=== PATIENT | male | born 1960 | race Caucasian/White ===

== ENCOUNTER 2020-08-06 07:33 | Outpatient (RCR) | payer OTHER, SELFPAY ==
[2020-08-06 08:27] LABS: COVID-19 Test Negative (Negative)
[2020-08-13 08:26] LABS: COVID-19 Test Negative (Negative)
[2020-08-20 10:30] LABS: COVID-19 Test Negative (Negative)
[2020-08-27 08:27] LABS: COVID-19 Test Negative (Negative)
[2020-09-07 09:09] LABS: SARS-COV-2 PCR UMBRL Not Detected
[2020-09-15 09:02] LABS: SARS-COV-2 PCR UMBRL Not Detected
[2020-09-20 09:51] LABS: SARS-COV-2 PCR UMBRL Not Detected
[2020-09-27 10:03] LABS: SARS-COV-2 PCR UMBRL Not Detected
[2020-10-01 12:11] LABS: SARS-COV-2 PCR UMBRL NEGATIVE
[2020-10-08 15:29] LABS: SARS-COV-2 PCR UMBRL NEGATIVE
[2020-10-15 11:07] LABS: SARS-COV-2 PCR UMBRL NEGATIVE
== END 2020-08-06 07:34 | disposition home or self-care (01) ==
LOC: HO.EMPCOV 07:33
PROVIDERS: Visit Provider Internal Medicine
DX: Z20.828 Contact with and (suspected) exposure to other viral communicable diseases (principal)
CPT/HCPCS: 36415; 87635; C9803; U0003

== ENCOUNTER 2020-10-05 08:43 | Outpatient (REF) | payer OTHER, SELFPAY ==
[2020-10-05 09:36] LABS: Hematocrit 44.8 % (42-52); Hemoglobin 15.6 g/dl (14.0-18.0); Mean Corpuscular HGB Conc 34.8 g/dl (31.0-36.0); Mean Corpuscular Hemoglobin 30.3 pg (27.0-33.0); Mean Platelet Volume 11.9 fL (9.4-12.4); Platelet Count 206 X10*3/uL (160-400); Red Blood Count 5.15 X10*6/uL (4.60-5.80); Red Cell Distribution Width 11.5 % (11.0-16.0); White Blood Count 6.6 X10*3/uL (4.8-10.8)
[2020-10-05 09:44] LABS: Glucose Urine UA NEG (NEG); Leukocyte Esterase Urine NEG (NEG); Nitrite Urine NEG (NEG); PH 6.5 (5.0-8.0); Urine Blood NEG (NEG); Urine Ketones NEG (NEG); Urine Protein NEG (NEG-TRACE)
[2020-10-05 09:49] LABS: Appearance Urine CLEAR; Color Urine YELLOW
[2020-10-05 10:08] LABS: Alanine Aminotransferase 32 U/L (0-40); Albumin Level 4.1 g/dL (3.5-5.0); Alkaline Phosphatase 84 U/L (39-117); Anion Gap 12 (12-20); Aspartate Amino Transferase 22 U/L (5-37); Bilirubin Total 0.9 mg/dL (0.0-1.0); Blood Urea Nitrogen 14 mg/dL (9-16); Calcium 8.9 mg/dL (8.4-10.2); Carbon Dioxide 28 mmol/L (22-29); Chloride 105 mmol/L (96-108); Cholesterol 147 mg/dL; Estimated Glomerular Filt Rate > 60; Glucose Random 126 mg/dL (60-115); HDL Cholesterol 30 mg/dL; LDL Cholesterol Calculated 85 mg/dl; Potassium 4.4 mmol/l (3.3-5.1); Sodium 141 mmol/L (135-145); Total Protein 6.7 g/dL (6.5-8.0); Triglycerides 163 mg/dL
[2020-10-05 10:29] LABS: Prostate Specific Antigen 0.86 ng/mL (<0.05-4.0)
== END 2020-10-05 08:44 | disposition home or self-care (01) ==
LOC: HO.LAB 08:43
PROVIDERS: PCP Internal Medicine; Visit Provider Internal Medicine
DX: N52.9 Male erectile dysfunction, unspecified (principal); R10.31 Right lower quadrant pain; C67.9 Malignant neoplasm of bladder, unspecified; Z12.5 Encounter for screening for malignant neoplasm of prostate
CPT/HCPCS: 36415; 80053; 80061; 81003; 84153; 85027

== ENCOUNTER 2021-10-14 10:01 | Outpatient (REF) | payer OTHER, SELFPAY ==
[2021-10-14 10:37] LABS: MANUAL DIFF FLAG NO
[2021-10-14 11:31] LABS: Appearance Urine CLEAR; Color Urine YELLOW; Glucose Urine UA NEG (NEG); Leukocyte Esterase Urine TRACE (NEG); Nitrite Urine NEG (NEG); PH 6.5 (5.0-8.0); Urine Blood NEG (NEG); Urine Ketones NEG (NEG); Urine Protein NEG (NEG-TRACE)
[2021-10-14 11:44] LABS: Basophils Absolute Auto 0.1 X10*3/uL (0.0-0.2); Basophils Percent Auto 0.8 % (0-2); Eosinophils Absolute Auto 0.4 X10*3/uL (0.0-0.4); Hematocrit 48.6 % (42.0-52.0); Hemoglobin 16.9 g/dl (14.0-18.0); Imm Gran Abs Auto 0.02 X10*3/uL (0.00-0.03); Imm Gran Pct Auto 0.3 % (0.0-0.4); Lymphocytes Absolute Auto 2.9 X10*3/uL (1.2-4.9); Lymphocytes Percent Auto 39.4 % (20-40); Mean Corpuscular HGB Conc 34.8 g/dl (31.0-36.0); Mean Corpuscular Hemoglobin 30.3 pg (27.0-33.0); Mean Corpuscular Volume 87.3 fL (80.0-98.0); Mean Platelet Volume 12.2 fL (9.4-12.4); Monocytes Absolute Auto 0.6 X10*3/uL (0.1-1.2); Monocytes Percent Auto 8.3 % (2-11); Neutrophils Absolute Auto 3.4 x10*3/uL (2.0-8.3); Neutrophils Percent Auto 46.2 % (45-73); Platelet Count 221 X10*3/uL (160-400); Red Blood Count 5.57 X10*6/uL (4.60-5.80); Red Cell Distribution Width 11.6 % (11.0-16.0); White Blood Count 7.4 X10*3/uL (4.8-10.8)
[2021-10-14 12:04] LABS: Alanine Aminotransferase 43 U/L (0-40); Albumin Level 4.4 g/dL (3.5-5.0); Alkaline Phosphatase 91 U/L (39-117); Anion Gap 14 (12-20); Aspartate Amino Transferase 27 U/L (5-37); Blood Urea Nitrogen 15 mg/dL (9-16); Calcium 9.7 mg/dL (8.4-10.2); Carbon Dioxide 27 mmol/L (22-29); Chloride 104 mmol/L (96-108); Cholesterol 171 mg/dL; Estimated Glomerular Filt Rate > 60; Glucose Random 133 mg/dL (60-115); HDL Cholesterol 35 mg/dL; LDL Cholesterol Calculated 96 mg/dl; Potassium 4.6 mmol/L (3.3-5.1); Sodium 140 mmol/L (135-145); Total Protein 7.4 g/dL (6.5-8.0); Triglycerides 202 mg/dL
[2021-10-14 12:04] LABS: Bacteria Urine TRACE /LPF; RBC Urine 0-2 /HPF (0); Squamous Epithelial Cell Urine TRACE /LPF
[2021-10-14 12:11] LABS: Prostate Specific Antigen 0.81 ng/mL (<0.05-4.0)
== END 2021-10-14 10:02 | disposition home or self-care (01) ==
LOC: HO.LAB 10:01
PROVIDERS: PCP Internal Medicine; Visit Provider Internal Medicine
DX: Z12.5 Encounter for screening for malignant neoplasm of prostate (principal); R10.31 Right lower quadrant pain; N52.9 Male erectile dysfunction, unspecified; C67.9 Malignant neoplasm of bladder, unspecified
CPT/HCPCS: 36415; 80053; 80061; 81001; 84153; 85025

== ENCOUNTER → 2021-12-22 14:30 | Outpatient (BNVA) | payer OTHER, SELFPAY | PROVIDERS: PCP Internal Medicine; Visit Provider Physician Assistant | DX: Z13.89 Encounter for screening for other disorder (principal) ==

== ENCOUNTER 2022-03-24 11:22 | Day surgery (SDC) | payer OTHER, SELFPAY ==
[2022-03-20 13:48] VITALS: BMI 30.2
--- NOTE | 2022-03-23 10:09 | P.CONAN_ITS ---
Documented by User: Tomeka Chaudhry NP 03/23/22 10:11 HPI - Anesthesia Eval Consult details Narrative: 89yo M for Colonoscopy [facility] Active Problems Active Problems: All Active Problems (Updated 03/20/22 @ 13:48 by Dariana Bernard, JESSICA) Encounter for screening colonoscopy (Acute) Bladder cancer (Acute) Elevated BP without diagnosis of hypertension (Acute) Past Medical History Medical History Bladder cancer GERD (gastroesophageal reflux disease) Gout Family History Family History Father Lung cancer Surgical History Surgical History H/O colonoscopy Social History Social History Household Members Other:: single, no kids Alcohol intake: current Patient Tobacco Use Status: Never used Tobacco Are you DNR?: No Advance Directives: No Advance Directives Information Provided: Yes Current occupation: [employer] Meds Allergies Allergy/AdvReac Type Severity Reaction Status Date / Time No Known Allergies Allergy Unverified 06/10/20 15:08 [No Known Allergies*] Home Medications Medication Instructions Recorded Confirmed Last Taken Type sildenafil 100 mg tablet 1 tab PO DAILY PRN Erectile 03/20/22 03/20/22 Unknown History Dysfunction Exam Exam Date and Time: March 23, 2022 1009 Height,Weight and Vital Signs: Height 5 ft 10 in Weight 95.708 kg Pertinent Lab Results Pertinent Lab Results: Laboratory Tests 10/14/21 10/14/21 10:35 10:35 WBC 7.4 Hgb 16.9 Hct 48.6 Plt Count 221 Sodium 140 Potassium 4.6 Chloride 104 Carbon Dioxide 27 BUN 15 Creatinine 1.05 Assessment and Plan Assessment Anesthesia Assessment: Chart Reviewed Documented by User: Sandy Cortes MD 03/24/22 13:29 [facility] Past Medical History Medical History Bladder cancer GERD (gastroesophageal reflux disease) Gout Family History Family History Father Lung cancer Surgical History Surgical History H/O colonoscopy History of Problems with Anesthesia: No Social History Social History Household Members Other:: single, no kids Alcohol intake: current Patient Tobacco Use Status: Never used Tobacco Are you DNR?: No Advance Directives: No Advance Directives Information Provided: Yes Current occupation: [employer] Meds Allergies Allergy/AdvReac Type Severity Reaction Status Date / Time No Known Allergies Allergy Unverified 06/10/20 15:08 [No Known Allergies*] Home Medications Medication Instructions Recorded Confirmed Last Taken Type sildenafil 100 mg tablet 1 tab PO DAILY PRN Erectile 03/20/22 03/20/22 Unknown History Dysfunction Exam Airway Mallampati Class: II TM Dist: >3cm Neck ROM: Full Loose/Missing/Broken Teeth: No Heart: RRR Lungs: CTA Assessment and Plan Final Anesthetic Review History of Problems with Anesthesia: No NPO: Yes ASA Class: II Final Preanesthetic Review: Meds/Allgs Chart Reviewed, Consent Obtained/Reviewed and Anes Risks/Benef Reviewed Patient Risk: Low Procedure Risk: Low Anesthetic Plan Anesthetic Plan: MAC: Disposition: Standard PACU
[2022-03-24 11:49] VITALS: BP 160/95; PULSE 77; RESP 19; TEMP 36.1; O2SAT 97
[2022-03-24] MEDS: Lactated Ringers 1,000 ML 100 ML IVCONT (12:20)
--- NOTE | 2022-03-24 12:46 | MHC.SHP ---
Pre-Procedural Eval Section A Date of Service: 03/24/22 The patient is an INPATIENT: No The History & Physical has been completed within 30 days and I have reviewed it.: No Section B Chief Complaint: screening Details of Present Illness: Colon cancer screening Relevant Family History (Specify if Yes): No Relevant Social History: None Present Medications: see Short Stay Collaborative assessment Medical History: Significant History (Bladder cancer) History of Previous Operations: Relevant previous surgery/procedure and date(s) (History of colonoscopy) Allergies: Allergies Allergy/AdvReac Type Severity Reaction Status Date / Time No Known Allergies Allergy Unverified 06/10/20 15:08 [No Known Allergies*] Review of Systems Sugical H&P ROS: Negative: Constitution, Cardiovascular, Respiratory and Gastrointestinal Exam Surgical H&P Exam: Normal: Heart, Normal: Lungs and Normal: Extremities Plan Diagnosis/Plan: Unchanged I have reviewed the history and physical and performed a pertinent physical examination on my patient. No changes have occurred unless specified.
--- NOTE | 2022-03-24 12:59 | PM.OP ---
Brief Operative Note Date of Service: 03/24/22 Pre-op diagnosis: Colon cancer screening Post-op diagnosis: other (Colon polyps, diverticulosis, hemorrhoids) Procedure: COLONOSCOPY TILL ILEOCECAL VALVE WITH BIOPSIES AND SNARE POLYPECTOMY Consent: Indications for the procedure and potential complications of bleeding, perforation, reaction to medications and missed diagnosis were discussed with the patient and informed consent was obtained. Instrument: Olympus PCF H 190 L variable stiffness pediatric colonoscope Monitoring: Vital signs and clinical assessment, intermittent blood pressure monitoring, continuous EKG monitoring, Pulse oximetry and Carbon Dioxide monitoring were done throughout the procedure. Colon withdrawl time was 20 minutes. Procedure: The patient was placed in the left lateral decubitis position and pre-procedure medications were administered. After a digital rectal examination of the ano-rectum, the video colonoscope was inserted into the rectum and advanced through the colon to the ICV. It was not possible to intubate the cecum due to recurrent looping of the scope. Cecum was partially visualized across the ICV. The colonoscope was slowly withdrawn in a retrograde panoramic fashion and the colon mucosa was carefully examined including a retroflexed view of the rectum. Findings and interventions are described below. Procedure Difficulty: Pt was placed in the supine position and LLQ pressure applied to intubate the cecum] Findings: Terminal Ileum: Not evaluated Cecum: Partially evaluated. A 5 mm sessile polyp removed with a cold bx. Ascending Colon: A 10 mm sessile polyp removed with a cold snare. Transverse Colon: Normal Descending Colon: Moderate diverticulosis Sigmoid Colon: Moderate diverticulosis Rectum: Normal Ano-rectum: Moderate internal hemorrhoids Colon preparation: Excellent Impression and Post Procedure Diagnosis: Colonoscopy Findings: Two small to medium sized polyps removed Moderate diverticulosis seen in the left colon Moderate hemorrhoids on retroflexed exam. Plan: Await pathology results Patient has an appointment on 04/06/22 in the GI Clinic with JAHAIRA Mora. Repeat Colonoscopy interval based on path results - in 3 years if polyps are adenomatous and since colon was partially visualized (needs adult colonoscope for future procedures). Colon polyps and diverticulosis handouts were given in the discharge area Surgeon: Fox Estrada MD Anesthesia: MAC (Dr Cortes) Was an Label Printer used for this Procedure?: Yes Label Printer: Faith Malcolm Estimated blood loss (mL): 0 Pathology: other (A: cecal polyp B: Polyps ascending colon) Condition: stable Disposition: PACU
[2022-03-24 13:40] VITALS: BP 133/74; PULSE 69; RESP 18; TEMP 36.7; O2SAT 97
[2022-03-24 13:55] VITALS: BP 119/71; PULSE 62; RESP 18; TEMP 36.6; O2SAT 98
--- NOTE | 2022-03-27 15:06 | P.OP_ITS ---
Operative Note Operative Note Date of Service: 03/24/22 Narrative: Pre-op diagnosis: Colon cancer screening Post-op diagnosis:?other (Colon polyps, diverticulosis, hemorrhoids) Procedure: COLONOSCOPY TILL ILEOCECAL VALVE WITH BIOPSIES AND SNARE POLYPECTOMY Consent: Indications for the procedure and potential complications of bleeding, perforation, reaction to medications and missed diagnosis were discussed with the patient and informed consent was obtained. Instrument: Olympus PCF H 190 L variable stiffness pediatric colonoscope Monitoring: Vital signs and clinical assessment, intermittent blood pressure monitoring, continuous EKG monitoring, Pulse oximetry and Carbon Dioxide monitoring were done throughout the procedure. Colon withdrawl time was 20 minutes. Procedure: The patient was placed in the left lateral decubitis position and pre-procedure medications were administered. After a digital rectal examination of the ano-rectum, the video colonoscope was inserted into the rectum and advanced through the colon to the ICV. It was not possible to intubate the cecum due to recurrent looping of the scope.? Cecum was partially visualized across the ICV.? The colonoscope was slowly withdrawn in a retrograde panoramic fashion and the colon mucosa was carefully examined including a retroflexed view of the rectum. Findings and interventions are described below. Procedure Difficulty: Pt was placed in the supine position and LLQ pressure applied to intubate the cecum Findings: Terminal Ileum: Not evaluated Cecum:? Partially evaluated.? A 5 mm sessile polyp removed with a cold bx. Ascending Colon:? A 10 mm sessile polyp removed with a cold snare. Transverse Colon:? Normal Descending Colon:? Moderate diverticulosis Sigmoid Colon:? Moderate diverticulosis Rectum:? Normal Ano-rectum:? Moderate internal hemorrhoids Colon preparation: Excellent ? Impression and Post Procedure Diagnosis: Colonoscopy Findings: Two small to medium sized polyps removed Moderate diverticulosis seen in the left colon Moderate hemorrhoids on retroflexed exam. Plan: Await pathology results Patient has an appointment on 04/06/22 in the GI Clinic with JAHAIRA Mora. Repeat Colonoscopy interval based on path results - in 3 years if polyps are adenomatous and since colon was partially visualized (needs adult colonoscope for future procedures). Colon polyps and diverticulosis handouts were given in the discharge area Surgeon: Fox Estrada MD Anesthesia:?MAC (Dr Cortes) Was an Staff Field Engineer used for this Procedure?:?Yes Staff Field Engineer:?Faith Malcolm Estimated blood loss (mL):?0 Pathology:?other (A: cecal polyp? B: Polyps ascending colon) Condition:?stable Disposition:?PACU
== END 2022-03-24 14:50 | disposition home or self-care (01) ==
PROVIDERS: PCP Internal Medicine; Visit Provider Internal Medicine Gastroenterology
PROC: 0DJD8ZZ Inspection of Lower Intestinal Tract, Via Natural or Artificial Opening Endoscopic (ICD-10-PCS; CPT 45378; principal; 2022-03-24 12:50)
DX: Z12.11 Encounter for screening for malignant neoplasm of colon (principal); D12.0 Benign neoplasm of cecum; D12.2 Benign neoplasm of ascending colon; K57.30 Diverticulosis of large intestine without perforation or abscess without bleeding; K64.8 Other hemorrhoids; R03.0 Elevated blood-pressure reading, without diagnosis of hypertension; K21.9 Gastro-esophageal reflux disease without esophagitis; M10.9 Gout, unspecified; Z85.51 Personal history of malignant neoplasm of bladder; Z79.899 Other long term (current) drug therapy
CPT/HCPCS: 45385; 45380; 88305

== ENCOUNTER 2022-05-09 11:47 | Outpatient (REF) | payer OTHER, SELFPAY ==
[2022-05-09 17:04] LABS: Urine Cytology See Pathology rpt
== END 2022-05-09 11:48 | disposition home or self-care (01) ==
LOC: HO.LAB 11:47
PROVIDERS: Visit Provider Urology
DX: C67.9 Malignant neoplasm of bladder, unspecified (principal)
CPT/HCPCS: 88112

== ENCOUNTER → 2022-06-27 14:00 | Outpatient (BNVA) | payer OTHER, SELFPAY | PROVIDERS: PCP Internal Medicine; Visit Provider Urology | DX: C67.9 Malignant neoplasm of bladder, unspecified (principal) | CPT/HCPCS: 52000 ==

== ENCOUNTER 2022-10-25 09:22 | Outpatient (REF) | payer OTHER, SELFPAY ==
[2022-10-25 09:33] LABS: MANUAL DIFF FLAG NO
[2022-10-25 10:02] LABS: Basophils Absolute Auto 0.1 X10*3/uL (0.0-0.2); Basophils Percent Auto 0.7 % (0-2); Eosinophils Absolute Auto 0.3 X10*3/uL (0.0-0.4); Eosinophils Percent Auto 3.8 % (0-4); Hematocrit 45.8 % (42.0-52.0); Imm Gran Abs Auto 0.02 X10*3/uL (0.00-0.03); Imm Gran Pct Auto 0.3 % (0.0-0.4); Lymphocytes Absolute Auto 3.2 X10*3/uL (1.2-4.9); Mean Corpuscular HGB Conc 34.9 g/dl (31.0-36.0); Mean Corpuscular Hemoglobin 29.7 pg (27.0-33.0); Mean Platelet Volume 11.2 fL (9.4-12.4); Monocytes Absolute Auto 0.6 X10*3/uL (0.1-1.2); Monocytes Percent Auto 7.8 % (2-11); Neutrophils Absolute Auto 3.1 x10*3/uL (2.0-8.3); Neutrophils Percent Auto 43.4 % (45-73); Platelet Count 235 X10*3/uL (160-400); Red Blood Count 5.39 X10*6/uL (4.60-5.80); Red Cell Distribution Width 11.9 % (11.0-16.0); White Blood Count 7.2 X10*3/uL (4.8-10.8)
[2022-10-25 10:07] LABS: Appearance Urine Clear; Color Urine Yellow; Glucose Urine UA Negative (Negative); Leukocyte Esterase Urine Negative (Negative); Nitrite Urine Negative (Negative); PH 5.5 (5.0-9.0); Urine Blood Negative (Negative); Urine Ketones Negative (Negative); Urine Protein Negative (Neg-Trace)
[2022-10-25 10:41] LABS: Alanine Aminotransferase 31 U/L (0-40); Albumin Level 4.2 g/dL (3.5-5.0); Alkaline Phosphatase 104 U/L (39-117); Anion Gap 10 (12-20); Aspartate Amino Transferase 27 U/L (5-37); Bilirubin Total 0.8 mg/dL (0.0-1.0); Blood Urea Nitrogen 17 mg/dL (9-16); Calcium 9.2 mg/dL (8.4-10.2); Carbon Dioxide 28 mmol/L (22-29); Chloride 107 mmol/L (96-108); Cholesterol 168 mg/dL; Estimated Glomerular Filt Rate > 60; Glucose Random 140 mg/dL (60-115); HDL Cholesterol 30 mg/dL; LDL Cholesterol Calculated 88 mg/dl; Sodium 141 mmol/L (135-145); Total Protein 6.9 g/dL (6.5-8.0); Triglycerides 253 mg/dL
[2022-10-25 10:55] LABS: Prostate Specific Antigen 1.72 ng/mL (<0.05-4.0)
== END 2022-10-25 09:23 | disposition home or self-care (01) ==
LOC: HO.LAB 09:22
PROVIDERS: PCP Internal Medicine; Visit Provider Internal Medicine
DX: Z00.00 Encounter for general adult medical examination without abnormal findings (principal); Z12.5 Encounter for screening for malignant neoplasm of prostate
CPT/HCPCS: 36415; 80053; 80061; 81003; 84153; 85025

== ENCOUNTER 2023-11-07 09:04 | Outpatient (REF) | payer OTHER, SELFPAY ==
[2023-11-07 10:30] LABS: Alanine Aminotransferase 29 U/L (0-40); Albumin Level 4.2 g/dL (3.5-5.0); Alkaline Phosphatase 95 U/L (39-117); Anion Gap 12 (12-20); Aspartate Amino Transferase 20 U/L (5-37); Bilirubin Total 0.9 mg/dL (0.0-1.0); Blood Urea Nitrogen 16 mg/dL (9-16); Calcium 9.8 mg/dL (8.4-10.2); Carbon Dioxide 27 mmol/L (22-29); Chloride 107 mmol/L (96-108); Cholesterol 175 mg/dL (<200); Estimated Glomerular Filt Rate > 60; Glucose Random 162 mg/dL (60-115); HDL Cholesterol 33 mg/dL (>40); LDL Cholesterol Calculated 99 mg/dL (<100); Potassium 4.3 mmol/L (3.3-5.1); Sodium 142 mmol/L (135-145); Total Protein 7.4 g/dL (6.5-8.0); Triglycerides 219 mg/dL (<150)
[2023-11-07 10:44] LABS: Prostate Specific Antigen 1.21 ng/mL (<0.05-4.0)
== END 2023-11-07 09:05 | disposition home or self-care (01) ==
LOC: HO.LAB 09:04
PROVIDERS: PCP Internal Medicine; Visit Provider Nurse Practitioner Adult Health
DX: Z00.00 Encounter for general adult medical examination without abnormal findings (principal); Z12.5 Encounter for screening for malignant neoplasm of prostate; E78.00 Pure hypercholesterolemia, unspecified; N40.0 Benign prostatic hyperplasia without lower urinary tract symptoms
CPT/HCPCS: 36415; 80053; 80061; 84153

== ENCOUNTER 2025-03-31 09:59 | Outpatient (REF) | payer OTHER, SELFPAY ==
[2025-03-31 11:27] LABS: Alanine Aminotransferase 25 U/L (0-40); Albumin Level 4.6 g/dL (3.5-5.0); Alkaline Phosphatase 102 U/L (39-117); Anion Gap 11 (12-20); Aspartate Amino Transferase 26 U/L (5-37); Blood Urea Nitrogen 17 mg/dL (9-16); Calcium 9.2 mg/dL (8.4-10.2); Carbon Dioxide 28 mmol/L (22-29); Chloride 107 mmol/L (96-108); Cholesterol 160 mg/dL (<200); Estimated Glomerular Filt Rate > 60; HDL Cholesterol 34 mg/dL (>40); Potassium 4.9 mmol/L (3.3-5.1); Sodium 141 mmol/L (135-145); Total Protein 7.3 g/dL (6.5-8.0); Triglycerides 159 mg/dL (<150)
[2025-03-31 11:39] LABS: Hemoglobin A1C 185.3291 umol/L; Total Hemoglobin (HGBA1C) 4181.6181 umol/L
[2025-03-31 11:50] LABS: Microalbum/Creatinine Ratio Ur 7.2 ug/mg cr (<30)
[2025-03-31 11:50] LABS: Free T4 (Free Thyroxine) 0.88 ng/dL (0.71-1.85); Thyroid Stimulating Hormone 2.02 uIU/mL (0.32-4.0)
== END 2025-03-31 10:00 | disposition home or self-care (01) ==
LOC: HO.LAB 09:59
PROVIDERS: PCP Internal Medicine; Visit Provider Nurse Practitioner Adult Health
DX: E11.9 Type 2 diabetes mellitus without complications (principal); N50.811 Right testicular pain
CPT/HCPCS: 36415; 80053; 80061; 82043; 82570; 83036; 84153; 84439; 84443

== ENCOUNTER 2025-07-10 13:48 | Outpatient (AMB) | payer OTHER, SELFPAY ==
--- NOTE | 2025-07-10 14:06 | A.OFFVIS_ITS ---
Intake Visit Reasons: 3y Cysto Intake Note: Patient is present for cystoscopy Current Medication: sildenafil Blood Thinners: none Osd Clerk Required: No Accompanied by: Self / Same As Patient Allergies No Known Allergies (No Known Allergies*) Allergy (Verified 08/07/25 09:34) HPI Comments Details: Madhav is a very pleasant male. He is a patient of Dr. Andrade. 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 Dc Cystoscopy - 07/15 NAD - left sidewall scarring Cytology negative high-grade Plan on check cystoscopy in 3 years PFSH Medical History Prediabetes Back pain Sports hernia HTN (hypertension) Gout GERD (gastroesophageal reflux disease) Bladder cancer Surgical History History of bladder surgery H/O colonoscopy Family History Father Lung cancer Social History Household Members Other:: single, no kids Alcohol intake: current Patient Tobacco Use Status: Never used Tobacco Use of substances other than those prescribed or required for medical reasons: Yes Substance Use Frequency: Occasionally Are you DNR?: No Advance Directives: No Advance Directives Information Provided: Yes Current occupation: [employer] Review of Systems Const Denies chills and Denies fever(s) Card Reports no additional complaints and Denies syncope Resp Denies cough GI Denies abdominal pain and Denies heartburn Reports as per HPI and Denies change in libido Neuro Denies syncope Psych Denies change in libido Endo Denies change in libido Physical Exam Const General: cooperative, healthy appearing, comfortable and no acute distress Orientation/consciousness: patient oriented x3 HEENT Face and sinus: Yes normal facial exam Mouth: moist mucous membranes Neck Neck: Yes normal visual inspection, Yes full ROM and Yes trachea midline Chest Chest palpation & inspection: normal inspection of the chest Resp Effort & Inspection: normal respiratory effort, able to speak in complete sentences and no respiratory distress GI Inspection: Yes normal to inspection Back/Spine/Pelvis Cervical Spine: normal cervical lordosis Thoracic/Lumbar Spine: thoracic and lumbar spine normal to inspection Skin General skin exam: no rashes or lesions noted Neuro General: patient oriented x3, gait normal, tone normal and moves all extremities Extrem General: Yes normal to inspection and Yes capillary refill normal Office Procedures Cystoscopy Consent Discussed risk and benefit or proposed procedure with the patient. Information consent for procedure given to the patient. Discussed technical aspects, risks, benefits and alternatives in full. Addressed all of the patient's questions and concerns regarding the procedure. The patient demonstrated knowledge and understanding. They wish to proceed with this procedure. Preparation The patient was prepped in the usual manner. A mixer machine feeder was present and in the room. Genitalia was prepped with betadine solution in a sterile manner. Lidocaine Jelly 2% was placed into the urethra and 16Fr flexible Olympus cystoscope was inserted into the meatus after adequate lubrication. Procedure Consent confirmed Genitalia prepped and draped using topical antiseptic and lidocaine jelly Clamp placed on penile glans to allow adequate dwell contact time with anesthetic Cystoscopy performed using a sterile disposable Urovue digital 16 Czech cystoscope Meatus circumcised Urethra anterior and posterior urethra normal Prostatic Urethra unremarkable Bladder examination with retroflexion of cystoscope Bladder Orifices normal shape and position Bladder Capacity Normal Trabeculations Grade 0 Cellule Formation None Diverticulum Formation None Mucosal Erythema None Bladder Tumor None Patient tolerated procedure [id number] DISPOSABLE SCOPE URO-G FLEXIBLE SCOPE Procedure code (CPT) selection complete Office Meds lidocaine HCl 2 % mucosal jelly in applicator Performing Provider: Ronald Felix MD [facility] Administered by: Dariana Joseph RN on 07/10/25 14:07 Dose Route Admin Location Dispensed Lot Number Expiration Date ND Wash Driller Helper 10 mL intra-urethral 10 mL nitrofurantoin monohydrate/macrocrystals 100 mg capsule Performing Provider: Ronald Felix MD Performing Location: [facility] Administered by: Dariana Joseph RN on 07/10/25 14:07 Dose Route Admin Location Dispensed Lot Number Expiration Date ND Wash Driller Helper 100 mg PO 1 cap Results AMB Urinalysis, Automated UA Leukoctes 0 Emile/uL Last Edit by YASMANY Fung on 07/10/25 15:52 UA Nitrite Last Edit by YASMANY Fung on 07/10/25 15:52 UA Urobilinogen 0.2 mg/dL Last Edit by YASMANY Fugn on 07/10/25 15:5 2 UA Protein 0 mg/dL Last Edit by YASMANY Fung on 07/10/25 15:52 UA pH 6.0 Last Edit by YASMANY Fung on 07/10/25 15:52 UA Blood 0 Celio/uL Last Edit by YASMANY Fung on 07/10/25 15:52 UA Specific [place] 1.010 Last Edit by YASMANY Fung on 07/10/25 15: 52 UA Ketone Last Edit by YASMANY Fung on 07/10/25 15:52 UA Bilirubin 0 mg/dL Last Edit by YASMANY Fung on 07/10/25 15:52 UA Glucose 0 mg/dL Last Edit by Laurel Phipps [facility] on 07/10/25 15:52 Results Reviewed Results Reviewed: Laboratory Last Values Urine pH (Auto) 6.0 07/10/25 15:50 Specific [place] (Auto) 1.010 07/10/25 15:50 Urine Protein (Auto) 0 mg/dL 07/10/25 15:50 Glucose (UA)(Auto) 0 mg/dL 07/10/25 15:50 Urine Blood (Auto) 0 Celio/uL 07/10/25 15:50 Urine Bilirubin (Auto) 0 mg/dL 07/10/25 15:50 Urine Urobilinogen (Auto) 0.2 mg/dL 07/10/25 15:50 Leukocyte Esterase (Auto) 0 Emile/uL 07/10/25 15:50 Assessment & Plan Assessment & Plan (1) Bladder cancer: Comment: 2000 low-grade - 2021 Cysto NAD Code(s): C67.9 - Malignant neoplasm of bladder, unspecified Category: Medical Plan Five year follow-up repeat cystoscopy Orders: Orders 2 AMB Cystoscopy 07/10/25 C67.9 - Malignant neoplasm of bladder, unspecified AMB Urinalysis Automated 07/10/25 Z13.9 - Encounter for screening, unspecified Patient Instructions: This note is constructed using voice recognition software. While every effort has been made to ensure accuracy medical transcription radiology errors may have been included. Imaging studies, laboratory and physical exam results were discussed and reviewed in detail. No major barriers to patient understanding were identified. An opportunity to ask questions regarding the treatment plan was provided. All questions were answered. The patient expressed understanding and agreement with the above treatment plan. The patient is aware they should contact our office by phone for worsening of their current condition or the appearance of new urologic symptoms. Compliance is encouraged with any medications and followup testing that is ordered. It is a privilege to participate in the urologic care of your patient. If you have any questions or concerns regarding treatment for the above conditions, or other urologic issues, please do not hesitate to contact me. The office telephone contact is [phone]. Sincerely, Dr Ronald Felix MD, SUSAN [facility] - Urology Compassionate Specialist Care for the Genitourinary System Coding Level of Care Code Est Pt Level 4 (37603) Diagnoses Bladder cancer C67.9 CPT Codes Cystoscopy - CPT: 42465-[id number] ([id number])
== END 2025-07-10 15:02 | disposition home or self-care (01) ==
LOC: HO.HUSH 13:48
PROVIDERS: PCP Internal Medicine; Visit Provider Urology
DX: C67.9 Malignant neoplasm of bladder, unspecified (principal)
CPT/HCPCS: 52000; 99203

== ENCOUNTER → 2025-07-10 13:48 | Outpatient (BNVA) | payer OTHER, SELFPAY | PROVIDERS: PCP Internal Medicine; Visit Provider Urology | DX: C67.9 Malignant neoplasm of bladder, unspecified (principal) | CPT/HCPCS: 52000; 81003 ==

== ENCOUNTER 2025-08-07 09:14 | Day surgery (SDC) | payer OTHER, SELFPAY ==
--- NOTE | 2025-08-04 10:41 | HO.ANESPROP2 ---
Documented by User: Tomeka Chaudhry NP 08/04/25 10:41 HPI - Anesthesia Eval Consult details Narrative: 65yo M for Colonoscopy [facility] Active Problems Active Problems: All Active Problems Diverticulosis of colon (Acute) Tubular adenoma (Acute) Encounter for screening colonoscopy (Acute) Bladder cancer (Acute) Elevated BP without diagnosis of hypertension (Acute) Past Medical History Medical History Prediabetes Back pain Sports hernia HTN (hypertension) Gout GERD (gastroesophageal reflux disease) Bladder cancer Family History Family History Father Lung cancer Surgical History Surgical History History of bladder surgery H/O colonoscopy History of Problems with Anesthesia: No Social History Social History Household Members Other:: single, no kids Alcohol intake: current Patient Tobacco Use Status: Never used Tobacco Use of substances other than those prescribed or required for medical reasons: Yes Substance Use Frequency: Occasionally Are you DNR?: No Advance Directives: No Advance Directives Information Provided: Yes Current occupation: [employer] Meds Allergies Allergy/AdvReac Type Severity Reaction Status Date / Time No Known Allergies (No Known Allergy Verified 08/07/25 09:34 Allergies*) Home Medications ?Medication ?Instructions ?Recorded ?Confirmed ?Last Taken ?Type sildenafil 100 mg tablet 1 tab PO DAILY PRN Erectile 03/20/22 08/07/25 Unknown History Dysfunction lisinopril 10 mg tablet 10 mg PO DAILY 08/05/25 08/07/25 Unknown History Assessment and Plan Assessment Anesthesia Assessment: Chart Reviewed Final Anesthetic Review History of Problems with Anesthesia: No Documented by User: Kip Olivera MD 08/07/25 12:07 [facility] Past Medical History Medical History Prediabetes Back pain Sports hernia HTN (hypertension) Gout GERD (gastroesophageal reflux disease) Bladder cancer Functional capacity: independent ambulation Family History Family History Father Lung cancer Family history of problems with anesthesia: No Surgical History Surgical History History of bladder surgery H/O colonoscopy Social History Social History Household Members Other:: single, no kids Alcohol intake: current Patient Tobacco Use Status: Never used Tobacco Use of substances other than those prescribed or required for medical reasons: Yes Substance Use Frequency: Occasionally Are you DNR?: No Advance Directives: No Advance Directives Information Provided: Yes Current occupation: [employer] Meds Allergies Allergy/AdvReac Type Severity Reaction Status Date / Time No Known Allergies (No Known Allergy Verified 08/07/25 09:34 Allergies*) Home Medications ?Medication ?Instructions ?Recorded ?Confirmed ?Last Taken ?Type sildenafil 100 mg tablet 1 tab PO DAILY PRN Erectile 03/20/22 08/07/25 Unknown History Dysfunction lisinopril 10 mg tablet 10 mg PO DAILY 08/05/25 08/07/25 Unknown History Exam Exam Date and Time: 08/07/25 Airway Mallampati Class: II TM Dist: >3cm Neck ROM: Full Heart: normal Lungs: normal Other: normal Assessment and Plan Final Anesthetic Review Family History of Problems with Anesthesia: No NPO: Yes ASA Class: II and III Final Preanesthetic Review: No Changes in Pt Med Stat, Meds/Allgs Chart Reviewed, Consent Obtained/Reviewed and Anes Risks/Benef Reviewed Patient Risk: Low Procedure Risk: Low Anesthetic Plan Anesthetic Plan: MAC: Disposition: Standard PACU
[2025-08-05 13:23] VITALS: BMI 29.5
[2025-08-07 09:35] VITALS: BMI 28.8
[2025-08-07 09:41] VITALS: BP 128/75; PULSE 78; RESP 15; TEMP 36.5; O2SAT 95
--- NOTE | 2025-08-07 09:45 | MHC.SHP ---
Pre-Procedural Eval Section A - 24 Hr Update-Section A only Date of Service: 08/07/25 The patient is an INPATIENT: No The patient has been examined within 24 hours of the surgical procedure. The History & Physical has been completed within 30 days and I have reviewed it.: No Section B - Complete if H&P > 30 days Chief Complaint: Since for colon polyps Relevant Family History (Specify if Yes): No Relevant Social History: None Present Medications: see Short Stay Collaborative assessment Medical History: Significant History (Bladder cancer GERD (gastroesophageal reflux disease) Gout) History of Previous Operations: Relevant previous surgery/procedure and date(s) (History of colonoscopy) Allergies: Allergies Allergy/AdvReac Type Severity Reaction Status Date / Time No Known Allergies (No Known Allergy Verified 08/07/25 09:34 Allergies*) Review of Systems Sugical H&P ROS: Negative: Constitution, Cardiovascular, Respiratory and Gastrointestinal Exam Surgical H&P Exam: Normal: Heart, Normal: Lungs, Normal: Extremities and Normal: Abdomen Plan Diagnosis/Plan: Change (proceed with colonoscopy) I have reviewed the history and physical and performed a pertinent physical examination on my patient. No changes have occurred unless specified. Time Spent With Patient Time: Total time managing care of this patient today ____ minutes.
[2025-08-07] MEDS: Lactated Ringers 1,000 ML 100 ML IVCONT (10:05)
--- NOTE | 2025-08-07 13:25 | P.OPN-COLO_ITS ---
Colonoscopy Operative Note Operative Note Date of Service: 08/07/25 Narrative: COLONOSCOPY TILL CECUM WITH SNARE POLYPECTOMY AND HEMOCLIP PLACEMENT Pre-op diagnosis: Surveillance for colon polyps. Post-op diagnosis:? Colon polyps, Diverticulosis, hemorrhoids Endoscopist:? Fox Estrada MD Anesthesia:?MAC Consent: Indications for the procedure and potential complications of bleeding, perforation, reaction to medications and missed diagnosis were discussed with the patient and informed consent was obtained. Instrument: Olympus CF H 190 L variable stiffness adult colonoscope Monitoring: Vital signs and clinical assessment, intermittent blood pressure monitoring, continuous EKG monitoring, Pulse oximetry and Carbon Dioxide monitoring were done throughout the procedure. Please see anesthesia flowsheet. Colon withdrawl time was 25 minutes. Procedure: The patient was placed in the left lateral decubitis position and pre-procedure medications were administered. After a digital rectal examination of the ano-rectum, the video colonoscope was inserted into the rectum and advanced through the colon to the cecum. The colonoscope was slowly withdrawn in a retrograde panoramic fashion and the colon mucosa was carefully examined including a retroflexed view of the rectum. Findings and interventions are described below. Procedure Difficulty: Colon was long and tortuous and there was some loop formation Findings: Terminal Ileum: Not evaluated Cecum: Normal Ascending Colon: A 12-15 mm flat polyp in the mid AC at 80 cms. Polyp was raised with 8 cc of [place] and removed with a stiff hot snare. Polypectomy site was closed with 1 hemoclip. Transverse Colon: Normal Descending Colon: Moderate diverticulosis Sigmoid Colon: Moderate diverticulosis Rectum: Normal Ano-rectum: Moderate internal hemorrhoids Colon preparation: Good after some irrigation. [place] Bowel Preparation Scale Right colon; 2 Transverse colon: 2 Left colon; 2 (0 = Unprepared colon segment with mucosa not seen due to solid stool that cannot be cleared. 1 = Portion of mucosa of the colon segment seen, but other areas of the colon segment not well seen due to staining, residual stool and/or opaque liquid. 2 = Minor amount of residual staining, small fragments of stool and/or opaque liquid, but mucosa of colon segment seen well. 3 = Entire mucosa of colon segment seen well with no residual staining, small fragments of stool or opaque liquid) Impression and Post Procedure Diagnosis: Colonoscopy Findings: One medium sized polyp was removed Moderate diverticulosis seen in the left colon Moderate hemorrhoids on retroflexed exam. Plan: I will send a letter with biopsy results. Repeat Colonoscopy in 3 years if polyps are adenomatous and 5 years if polyps are hyperplastic. Above findings were reviewed with the patient and relevant handouts were given and the discharge area.
[2025-08-07 13:27] VITALS: BP 111/69; PULSE 77; TEMP 37; O2SAT 95
[2025-08-07 13:40] VITALS: BP 122/85; PULSE 66; O2SAT 95
== END 2025-08-07 14:03 | disposition home or self-care (01) ==
PROVIDERS: PCP Internal Medicine; Visit Provider Internal Medicine Gastroenterology
PROC: 0DJD8ZZ Inspection of Lower Intestinal Tract, Via Natural or Artificial Opening Endoscopic (ICD-10-PCS; CPT 45378; principal; 2025-08-07 11:00)
DX: Z12.11 Encounter for screening for malignant neoplasm of colon (principal); Z86.0101 Personal history of adenomatous and serrated colon polyps; D12.2 Benign neoplasm of ascending colon; K57.30 Diverticulosis of large intestine without perforation or abscess without bleeding; K64.8 Other hemorrhoids; K21.9 Gastro-esophageal reflux disease without esophagitis; C67.9 Malignant neoplasm of bladder, unspecified; I10 Essential (primary) hypertension; R73.03 Prediabetes; M10.9 Gout, unspecified; Z98.890 Other specified postprocedural states; Z79.899 Other long term (current) drug therapy
CPT/HCPCS: 45385; 45381; 88305; J2003; J2704; J3010

== ENCOUNTER → 2025-08-07 09:14 | Outpatient (BNV) | payer OTHER, SELFPAY | PROVIDERS: PCP Internal Medicine; Visit Provider Internal Medicine Gastroenterology | DX: Z12.11 Encounter for screening for malignant neoplasm of colon (principal); K63.5 Polyp of colon; K57.90 Diverticulosis of intestine, part unspecified, without perforation or abscess without bleeding; K64.8 Other hemorrhoids | CPT/HCPCS: 45385 ==